=== PATIENT | male | born 1960 | race Caucasian/White ===

== ENCOUNTER 2020-03-27 16:56 | Emergency (ER) | payer SELFPAY ==
[2020-03-27 18:06] LABS: Clarity Turbid (Clear)
[2020-03-27 18:07] LABS: Specific Gravity, Urine 1.024 (1.002-1.036)
[2020-03-27 18:08] LABS: Bacteria/HPF None Seen HPF (None Seen); RBC/HPF Greater than 50 HPF (0-3); Squamous Epithelial None Seen HPF (0-3); WBC/HPF None Seen HPF (0-3)
== END 2020-03-27 18:35 | disposition home or self-care (01) ==
LOC: NAV ERS 16:56
DX: R33.9 Retention of urine, unspecified (principal); R31.9 Hematuria, unspecified; I10 Essential (primary) hypertension; F17.210 Nicotine dependence, cigarettes, uncomplicated; Z79.899 Other long term (current) drug therapy
CPT/HCPCS: 51702; 81003; 81015; 87086